=== PATIENT | male | born 2000 | race Caucasian/White ===

== ENCOUNTER → 2022-11-24 | Outpatient (CLI) | payer BC ==
--- NOTE | 2022-11-24 18:40 | Diagnostic Imaging Report ---
INDICATION: Pain. FINDINGS: Two-view right humerus shows no fracture, dislocation or acute appearing articular irregularity. IMPRESSION: Unremarkable two-view humerus. Dictated by: Dictated on workstation # [id number]
== END ==
LOC: RAD 17:50
PROVIDERS: ATTEND Nurse Practitioner Community Health
DX: S41.151A Open bite of right upper arm, initial encounter (principal)
CPT/HCPCS: 73060